=== PATIENT | female | born 1960 | race Caucasian/White ===

== ENCOUNTER 2021-10-24 10:04 | Emergency (ER) | payer OTHER ==
[~2021-10-24] VITALS: Ht 167.6 cm; Wt 68.0 kg
[2021-10-24 10:56] LABS: ABSOLUTE EOSINOPHILS 0.1 thou/uL (0.0-0.7); ABSOLUTE LYMPHOCYTES 1.1 thou/uL (0.8-5.3); ABSOLUTE MONOCYTES 0.3 thou/uL (0.0-1.2); ABSOLUTE NEUTROPHILS 2.4 thou/uL (1.6-8.1); BASOPHILS 0.8 %; EOSINOPHILS 2.2 %; HEMOGLOBIN 12.4 gm/dL (12.0-15.0); LYMPHOCYTES 28.2 %; MCH 30.9 pg (26.0-34.0); MCHC 33.5 g/dL (28.0-37.0); MCV 92.1 fL (80.0-100.0); MONOCYTES 8.2 %; MPV 7.5 fl. (7.2-11.1); NUCLEATED RBCS 0 /100WBC; PLATELET COUNT* 238 thou/uL (150-400); POLYS 60.6 %; RBC 4.02 mil/uL (4.20-5.00); RDW-CV 12.8 % (10.5-14.5); WBC 3.9 thou/uL (4.0-11.0)
[2021-10-24 11:05] LABS: CREATININE 0.5 mg/dL (0.6-1.3); POTASSIUM 3.5 mmol/L (3.5-5.1)
--- NOTE | 2021-10-24 11:06 | EKG ---
[place] [address] ELECTROCARDIOGRAM REPORT Name: ELICEO RAMOS Room: [facility]#: [id number] Admission: 10/24/21 Attend Phys: Discharge: Date of : 60 Date of Service: 10/24/21 1009 Report #: [id number] THIS REPORT FOR: //name// [facility] ED Test Date: 2021-10-24 Test Time: 10:09:08 Pat Name: ELICEO RAMOS Department: Room: Gender: Adolescent Psychiatrist: : 1960 Requested By: Noe Juarez Order Number: [id number] MD: Yuri Srinivasan Measurements Intervals [place] Rate: 78 P: 45 IL: 143 QRS: -2 QRSD: 91 T: 26 QT: 407 QTc: 464 Interpretive Statements Sinus rhythm RSR' in V1 or V2, right VCD or RVH No previous ECG available for comparison Electronically Signed On 10-24-2021 11:06:21 PIERCING ARTIST by Yuri Srinivasan [email or web address] <ELECTRONICALLY SIGNED> By: Yuri Srinivasan MD, [facility] 10/24/21 1106 1009 1009 Yuri Srinivasan MD, [facility] /EPI
[2021-10-24 11:10] LABS: ALBUMIN 3.9 g/dL (3.4-5.0); TOTAL BILIRUBIN 1.2 mg/dL (<0.1-1.0); TOTAL PROTEIN 7.4 g/dL (6.4-8.2)
[2021-10-24] MEDS ORDERED: FAMOTIDINE 20 M20 MG PO (13:13)
[2021-10-24 13:28] VITALS: BP 128/73
== END 2021-10-24 13:30 | disposition home or self-care (01) ==
LOC: M.ERS 10:04
PROVIDERS: Physician Assistant
DX: R07.89 Other chest pain (principal); K21.9 Gastro-esophageal reflux disease without esophagitis